=== PATIENT | female | born 1965 | race Caucasian/White ===

== ENCOUNTER 2017-05-22 17:44 | Emergency (ER) | payer OTHER ==
--- NOTE | 2017-05-22 17:49 | UC ---
Respiratory Complaint HPI - HPI Summary HPI Summary: 53 YEAR OLD FEMALE PRESENTS WITH COMPLAINS OF COUGH. - History of Current Complaint Stated Complaint: URI Time Seen by Provider: 05/22/17 17:48 Hx Obtained From: Patient Hx Last Menstrual Period: 7 weeks ago Severity Initially: Moderate Severity Currently: Moderate Pain Scale Used: 0-10 Numeric - 5 - Allergies/Home Medications Allergies/Adverse Reactions: Allergies Allergy/AdvReac Type Severity Reaction Status Date / Time Cephalosporins Allergy Severe Anaphylatic Verified 03/05/16 20:45 Shock Penicillins Allergy Severe Anaphylatic Verified 03/05/16 20:45 Shock Latex Allergy Intermediate Rash Verified 03/05/16 20:45 glue on EKG pads Allergy Severe SEVERE Uncoded 03/05/16 20:45 RASH, BREAKS SKIN DOWN PMH/Surg Hx/FS Hx/Imm Hx - Surgical History Surgical History: Yes Surgery Procedure, Year, and Place: 1995 [place] [facility] [place] [facility] [place] SURGERY TO REPAIR LEFT GROIN NERVE DAMAGE. 1999 LOWER BACK LAMINECTOMY WITH INTRATHECAL PUMP INSERTION AND [place]OVAL 3 [place]TH[place] LATER[place] [facility] [place] ABDOMINAL INCISIONAL HERNIA REPAIR, [place]. 2003 RIGHT BREAST L[place] [facility] [place] BILATERAL [place]GS VEIN SURGERY, [place]. [place] [facility] [place] - Family History Known Family History: Positive: Hypertension - Social History Alcohol Use: Rare Alcohol Amount: 3x/month Substance Use Type: None, Prescribed Smoking Status (MU): Former Smoker Type: Cigarettes Amount Used/How Often: 1 PPD Length of Time of Smoking/Using Tobacco: quit 10 years ago Have You Smoked in the Last Year: No When Did the Patient Quit Smoking/Using Tobacco: 1999 Household Exposure Type: Cigarettes Review of Systems Constitutional: Negative Skin: Negative Eyes: Negative ENT: Negative Respiratory: Cough Cardiovascular: Negative Gastrointestinal: Negative Genitourinary: Negative Motor: Negative Neurovascular: Negative Musculoskeletal: Negative Neurological: Negative Psychological: Negative All Other Systems Reviewed And Are Negative: Yes Physical Exam Triage Information Reviewed: Yes Appearance: Well-Appearing Eye Exam: Normal ENT Exam: Normal Dental Exam: Normal Neck exam: Normal Neck: Positive: 1 Respiratory: Positive: Wheezing Cardiovascular Exam: Normal Abdominal Exam: Normal Musculoskeletal Exam: Normal Neurological Exam: Normal Psychological Exam: Normal Skin Exam: Normal Respiratory Course/Dx - Differential Dx/Diagnosis Provider Diagnoses: COUGH Discharge - Discharge Plan Condition: Stable Disposition: HOME Referrals: Marysol Vuong MD [Primary Care Provider] -
[2017-05-22 17:58] VITALS: BP 121/76
== END 2017-05-22 18:00 | disposition home or self-care (01) ==
LOC: UCEAST 17:44
DX: R05 Cough (principal); Z88.0 Allergy status to penicillin; Z87.891 Personal history of nicotine dependence
CPT/HCPCS: 99212; G0463

== ENCOUNTER 2017-12-11 17:47 | Emergency (ER) | payer OTHER ==
[2017-12-11] MEDS ORDERED: NS 0.9% 1000 ML* 1,000 ML IV ONE ×2 (18:20→19:29)
[2017-12-11] MEDS ORDERED: Acetaminophen TAB* 325 MG PO ONE (18:41)
[2017-12-11] MEDS ORDERED: Albuterol/Ipratropium NEB.SOL* Albuterol 2.5 MG/Ipratropium 0.5 MG 3 ML INH ONE (18:46)
[2017-12-11] MEDS ORDERED: cefTRIAXone(*) 1 GM in NS 0.9% 50 ML* 50 ML IVPB ONE (18:49)
[2017-12-11] MEDS ORDERED: methylPREDNISolone SOD 40 MG* 1 ML VIAL IV ONE (18:50)
[2017-12-11] MEDS ORDERED: Levofloxacin TAB* 500 MG PO ONE (18:52)
--- NOTE | 2017-12-11 18:59 | UC ---
HPI Febrile Illness - HPI Summary HPI Summary: Patient is a 52-year-old female with history of asthma presenting to the with chief complaint of shortness of breath, fever as high as 103.5, cough, bilateral rib pain, worse with cough 3 days. Endorses sick contacts. Did not receive a flu vaccination this ear. She has been taking ibuprofen and Tylenol without relief. Endorses diffuse body aches. Cough is without production. Endorses sweats and chills. Denies any abdominal pain. Denies any urinary symptoms or back pain. Endorses sick contacts, but is unsure with the individuals had at the time. Denies any pinpoint tenderness worse with inspiration. Symptoms are aggravated with nothing and alleviated with nothing. She denies any nausea, vomiting, diarrhea, constipation. She endorses a decrease in by mouth intake. Denies smoking, calf pain, long trips, however patient has a family history of blood clots and she is tested positive in the past for d-dimer, however CT scans were negative for a PE. - History of Current Complaint Chief Complaint: UCRespiratory Time Seen by Provider: 12/11/17 18:10 Hx Obtained From: Patient Hx Last Menstrual Period: 11/12/17 Onset/Duration: Started Days Ago Timing: Constant Temperature: 102.3 F Initial Severity: Moderate Current Severity: Moderate Pain Intensity: 6 Pain Scale Used: 0-10 Numeric Aggravating Factors: Nothing Alleviating Factors: Nothing Associated Signs and Symptoms: Negative - Risk Factors Pseudomonas Risk Factors: Chronic Lung Disease Serious Bacterial Infection Risk Factors: Negative - Allergy/Home Medications Allergies/Adverse Reactions: Allergies Allergy/AdvReac Type Severity Reaction Status Date / Time Cephalosporins Allergy Severe Anaphylatic Verified 12/11/17 19:38 Shock Penicillins Allergy Severe Anaphylatic Verified 12/11/17 19:38 Shock latex Allergy Intermediate Rash Verified 12/11/17 19:38 glue on EKG pads Allergy Severe SEVERE Uncoded 12/11/17 18:05 RASH, BREAKS SKIN DOWN PMH/Surg Hx/FS Hx/Imm Hx Previously Healthy: Yes - Surgical History Surgical History: Yes Surgery Procedure, Year, and Place: 1995 SURGERY FOR PLACENTA ABRUPTIO, [facility] [place]. 1997 RIGHT FALLOPIAN TUBE AND OVARY REMOVED, [facility] [place]. 1998 SURGERY TO REPAIR LEFT GROIN NERVE DAMAGE. 1999 LOWER BACK LAMINECTOMY WITH INTRATHECAL PUMP INSERTION AND REMOVAL 3 MONTHS LATER, [facility] [place]. 1999'S ABDOMINAL INCISIONAL HERNIA REPAIR, [place]. 2004 RIGHT BREAST LUMPECTOMY BENIGN, [facility] [place] 06/29/2015 BILATERAL LEGS VEIN SURGERY, [place]. BLADDER SURGERY, [facility] [place]. Right foot surgery - Family History Known Family History: Positive: Hypertension - Social History Occupation: Employed Full-time Lives: With Family Alcohol Use: Rare Alcohol Amount: 3x/month Substance Use Type: None Smoking Status (MU): Former Smoker Type: Cigarettes Amount Used/How Often: 1 PPD Length of Time of Smoking/Using Tobacco: quit 10 years ago Have You Smoked in the Last Year: No When Did the Patient Quit Smoking/Using Tobacco: 1999 Household Exposure Type: Cigarettes - Immunization History Hx Tetanus, Diphtheria Vaccination: No Vaccination Up to Date: No Review of Systems Constitutional: Fever, Chills, Fatigue Skin: Negative Eyes: Negative ENT: Sore Throat Respiratory: Shortness Of Breath, Cough Cardiovascular: Chest Pain - With cough Gastrointestinal: Negative Genitourinary: Negative Motor: Negative Musculoskeletal: Negative Neurological: Negative Psychological: Negative Is Patient Immunocompromised?: No All Other Systems Reviewed And Are Negative: Yes Physical Exam Triage Information Reviewed: Yes Appearance: Ill-Appearing Vital Signs: Initial Vital Signs Temp 99.9 F 12/11/17 17:56 Pulse 112 12/11/17 17:56 Resp 18 12/11/17 17:56 BP 110/62 12/11/17 17:56 Pulse Ox 100 12/11/17 17:56 Vital Signs Reviewed: Yes Eye Exam: Normal ENT: Positive: Pharynx normal, Uvula midline. Negative: Pharyngeal erythema, Nasal congestion, Nasal drainage, TM bulging, TM dull, TM red, Tonsillar swelling, Tonsillar exudate, Sinus tenderness Neck exam: Normal Neck: Positive: Supple, Nontender, No Lymphadenopathy Respiratory: Positive: Respiratory distress - mild, Rhonchi Cardiovascular Exam: Normal Cardiovascular: Positive: RRR Musculoskeletal Exam: Normal Musculoskeletal: Positive: Strength Intact Neurological Exam: Normal Psychological: Positive: Normal Response To Family Skin Exam: Normal Course/Dx - Course Course Of Treatment: During the course of treatment, the patient is evaluated for febrile illness. She appears to be in a mild acute respiratory distress and she is tachycardia at 112 on arrival. Temperature is 102.3. Respirations 18, blood pressure remained stable. Flu and strep negative. Chest x-ray obtained which shows no acute findings. 2 L fluids given, 500 mg by mouth Levaquin given due to cephalosporin allergy, Tylenol 650 mg by mouth, breathing treatment DUO-NEB and Solu-Medrol 80 mg IV for shortness of breath due to her asthma. Patient is feeling improved, but remains at 100.3 temp on recheck. I discussed with the patient strict return precautions and she understands these. She will return to the ED for any worsening symptoms. Tylenol and ibuprofen intermittently for fevers. She is given Zofran for some mild nausea which she developed here in the UC and resolved with medication. I discussed with the patient that I am not finding a source of her infection, but likely a bronchitis. Will cover with Levaquin and give albuterol and prednisone for shortness of breath. I have also discussed with patient sending her to the ED as I am unable to provide blood work. I have agreed at this time she is safe to be discharged home, and she understands for worsening symptoms she will go to the ED and understands that we are unable to provide blood work at this time. - Febrile Illness Differential Diagnoses: Other: - Bronchitis, fever of unknown origin, bacteremia - Diagnoses Clinic Provider Diagnoses: Fever of unknown origin; shortness of breath Discharge - Sign-Out/Discharge Documenting (check all that apply): Discharge/Admit/Transfer - Discharge Plan Condition: Stable Disposition: HOME Prescriptions: Albuterol HFA INHALER* [Ventolin HFA Inhaler*] 1 puff INH Q4H PRN #1 mdi PRN Reason: Shortness Of Breath Levofloxacin TAB* [Levaquin TAB*] 500 mg PO DAILY #4 tab Ondansetron ODT TAB* [Zofran 4 MG Odt TAB*] 4 mg PO Q6H PRN #12 tab.odt MDD 4 PRN Reason: Nausea predniSONE TAB* [Deltasone TAB*] 50 mg PO DAILY #5 tab MDD 1 Patient Education Materials: Fever in Adults (ED), Acute Bronchitis (ED) Referrals: Marysol Vuong MD [Primary Care Provider] - Additional Instructions: Tylenol and ibuprofen, use intermittently every 3 hours for fever Prednisone 50 mg tabs, take once daily in the morning Levaquin 500 mg tabs once daily 4 days I have also given you Zofran for any nausea associated with the antibiotic Drink plenty of fluids, including Gatorade Chicken noodle soup, crackers, rice Albuterol inhaler, 1-2 puffs every 4 hours as needed for shortness of breath If he develop any worsening or changing symptoms, return to the ED immediately If he develop worsening fevers, abdominal pain or chest pain, go to the ED - Billing Disposition and Condition Condition: STABLE Disposition: HOME
--- NOTE | 2017-12-11 19:07 | RAD ---
Indication: Cough with fever. 2 views of the chest including dual energy PA views demonstrate no mediastinal shift. Heart is of normal size and configuration. Lung vasquez appear clear. Comparison is made with previous exam dated December 10, 2013. IMPRESSION: No active cardiopulmonary disease is noted.
[2017-12-11 20:11] VITALS: BP 127/74
[2017-12-11] MEDS ORDERED: Ondansetron ODT TAB* 4 MG SL ONE (20:12)
== END 2017-12-11 21:00 | disposition home or self-care (01) ==
LOC: UCEAST 17:47
DX: R50.9 Fever, unspecified (principal); R06.02 Shortness of breath; R07.81 Pleurodynia; R05 Cough; M79.1 Myalgia; Z88.1 Allergy status to other antibiotic agents; Z91.040 Latex allergy status; Z88.0 Allergy status to penicillin; Z91.048 Other nonmedicinal substance allergy status; Z87.891 Personal history of nicotine dependence
CPT/HCPCS: 71046; 87502; 87651; 96360; 96361; 96374; 96375; 99213; A9270-GY; G0463; J0696; J2920

== ENCOUNTER 2017-12-13 20:00 | Emergency (ER) | payer OTHER ==
[2017-12-13 21:10] LABS: ABS Basophils 0 10^3/ul (0-0.2); ABS Eosinophils 0 10^3/ul (0-0.6); ABS Lymphocytes 1.2 10^3/ul (1.0-4.8); ABS Monocytes 0.5 10^3/ul (0-0.8); ABS Neutrophils 3.8 10^3/ul (1.5-7.7); ABS Nucleated RBC 0 10^3/ul; Eosinophil % 0.4 % (0-6); Hematocrit 40 % (35-47); Hemoglobin 14.1 g/dl (12.0-16.0); Lymphocyte % 21.1 % (25-47); Mean Corpuscular HGB Conc 35 g/dl (31-36); Mean Corpuscular Hemoglobin 30 pg (27-31); Mean Corpuscular Volume 85 fL (80-97); Mean Platelet Volume 7.9 um3 (7.4-10.4); Nucleated Red Blood Cells % 0; Platelet Count 175 10^3/ul (150-450); Red Blood Count 4.73 10^6/ul (4.0-5.4); Red Cell Distribution Width 13 % (10.5-15); White Blood Count 5.5 10^3/ul (3.5-10.8)
[2017-12-13 21:20] LABS: EGFR Non-African American 78.7 (>60)
[2017-12-13] MEDS ORDERED: Ipratropium 0.5MG/2.5ML NEB* 0.5 MG/2.5 ML NEB.SOLN INH ONE (22:21)
[2017-12-13] MEDS ORDERED: Levalbuterol 0.63MG/3ML NEB* UNIT OF USE INH ONE ×2 (22:21→22:35)
[2017-12-13] MEDS ORDERED: predniSONE TAB* 20 MG PO ONE (22:21)
[2017-12-13] MEDS ORDERED: Azithromycin TAB* 250 MG PO ONE (22:29)
[2017-12-13 23:09] VITALS: BP 115/71
--- NOTE | 2017-12-14 04:20 | ED ---
Kerrie Garza Emily, scribed for Wyatt Turk MD on 12/13/17 at 2220 . Respiratory - HPI Summary HPI Summary: This patient is a 52 year old F presenting to [facility] with a chief complaint of "feeling off" from medication that began 2 days ago. Pt was seen 2 days ago and reports being treated with a breathing treatment, a steroid, and Levaquin. Pt reports her current medication causing her to see things. The patient rates the pain 0/10 in severity. Symptoms aggravated by nothing. Symptoms alleviated by prescribed medication. Patient reports fever of 103, cough (green sputum) and SOB. Pt reports not taking her prescription for prednisone, but taking the levaquin and experiencing these symptoms. - History of Current Complaint Chief Complaint: EDGeneral Stated Complaint: GENERAL Time Seen by Provider: 12/13/17 21:46 Hx Obtained From: Patient Onset/Duration: Sudden Onset, Lasting Days, Still Present Initial Severity: Mild Current Severity: Mild Pain Intensity: 0 Character: Cough (Productive) Sputum Color: Green Aggravating Factor(s): Nothing Alleviating Factor(s): Dose Of Medications Associated Signs and Symptoms: SOB - Allergy/Home Medications Allergies/Adverse Reactions: Allergies Allergy/AdvReac Type Severity Reaction Status Date / Time Cephalosporins Allergy Severe Anaphylatic Verified 12/13/17 20:13 Shock Penicillins Allergy Severe Anaphylatic Verified 12/13/17 20:13 Shock latex Allergy Intermediate Rash Verified 12/13/17 20:13 glue on EKG pads Allergy Severe SEVERE Uncoded 12/13/17 20:13 RASH, BREAKS SKIN DOWN PMH/Surg Hx/FS Hx/Imm Hx Previously Healthy: No Endocrine/Hematology History: Denies: Hx Diabetes Cardiovascular History: Reports: Hx Angina, Other Cardiovascular Problems/ Disorders - SVT'S Denies: Hx Congestive Heart Failure Comment Only: Hx Peripheral Vascular Disease - BILATERAL LEGS VEIN SURGERY Respiratory History: Reports: Hx Asthma - USE INHALERS, Hx Chronic Obstructive Pulmonary Disease (COPD) - bronchitis GI History: Reports: Hx Gastroesophageal Reflux Disease - CONTROL WITH MED History: Reports: Hx Kidney Stones - MOST RECENT 2013 - PASSED (LEFT SIDE) Denies: Hx Renal Disease Sensory History: Denies: Hx Contacts or Glasses, Hx Hearing Aid Opthamlomology History: Denies: Hx Contacts or Glasses Neurological History: Reports: Hx Headaches - 4 X A WEEK - Surgical History Surgery Procedure, Year, and Place: 1995 SURGERY FOR PLACENTA ABRUPTIO, [facility] [place]. 1997 RIGHT FALLOPIAN TUBE AND OVARY REMOVED, [facility] [place]. 1998 SURGERY TO REPAIR LEFT GROIN NERVE DAMAGE. 1999 LOWER BACK LAMINECTOMY WITH INTRATHECAL PUMP INSERTION AND REMOVAL 3 MONTHS LATER, [facility] [place]. 1999'S ABDOMINAL INCISIONAL HERNIA REPAIR, [place]. 2003 RIGHT BREAST LUMPECTOMY BENIGN, [facility] [place]. 06/29/2015 BILATERAL LEGS VEIN SURGERY, [place]. BLADDER SURGERY, [facility] [place]. Right foot surgery Hx Anesthesia Reactions: Yes - BRONCHIAL SPASM/INTUBATIONS, HARD TO WAKE UP SOMETIMES Infectious Disease History: No Infectious Disease History: Denies: Hx Clostridium Difficile, Hx Hepatitis, Hx Human Immunodeficiency Virus (HIV), Hx of Known/Suspected MRSA, Hx Shingles, Hx Tuberculosis, Hx Known/ Suspected VRE, Hx Known/Suspected VRSA, History Other Infectious Disease, Traveled Outside the in Last 30 Days - Family History Known Family History: Positive: Hypertension - Social History Occupation: Disabled Lives: With Family Alcohol Use: Rare Alcohol Amount: 3x/month Substance Use Type: Reports: None Smoking Status (MU): Former Smoker Type: Cigarettes Amount Used/How Often: 1 PPD Length of Time of Smoking/Using Tobacco: quit 10 years ago Have You Smoked in the Last Year: No Review of Systems Positive: Fever Positive: Shortness Of Breath, Cough Neurological: Other - Positive "seeing things" and "feeling off" from medication All Other Systems Reviewed And Are Negative: Yes Physical Exam - Summary Physical Exam Summary: Appearance: Well appearing, no pain distress Skin: warm, dry, reflects adequate perfusion Head/face: normal Eyes: EOMI, NEREYDA ENT: normal Neck: supple, non-tender Respiratory: breath sounds present, A lot of wheezes on left side. Cardiovascular: RRR, pulses symmetrical Abdomen: non-tender, soft Bowel Sounds: present Musculoskeletal: normal, strength/ROM intact Neuro: normal, sensory motor intact, A&Ox3 Triage Information Reviewed: Yes Vital Signs On Initial Exam: Initial Vitals Temp Pulse Resp BP Pulse Ox 98.0 F 113 18 141/72 97 12/13/17 20:05 12/13/17 20:05 12/13/17 20:05 12/13/17 20:05 12/13/17 20:05 Vital Signs Reviewed: Yes Diagnostics - Vital Signs Vital Signs Temp Pulse Resp BP Pulse Ox 12/13/17 20:05 98.0 F 113 18 141/72 97 - Laboratory Lab Results: Lab Results 12/13/17 12/13/17 Range/Units 20:45 20:45 WBC 5.5 (3.5-10.8) 10^3/ul RBC 4.73 (4.0-5.4) 10^6/ul Hgb 14.1 (12.0-16.0) g/dl Hct 40 (35-47) % MCV 85 (80-97) fL MCH 30 (27-31) pg MCHC 35 (31-36) g/dl RDW 13 (10.5-15) % Plt Count 175 (150-450) 10^3/ul MPV 7.9 (7.4-10.4) um3 Neut % (Auto) 68.8 (38-83) % Lymph % (Auto) 21.1 L (25-47) % [place] % (Auto) 9.4 H (0-7) % Eos % (Auto) 0.4 (0-6) % Baso % (Auto) 0.3 (0-2) % Absolute Neuts (auto) 3.8 (1.5-7.7) 10^3/ul Absolute Lymphs (auto) 1.2 (1.0-4.8) 10^3/ul Absolute Monos (auto) 0.5 (0-0.8) 10^3/ul Absolute Eos (auto) 0 (0-0.6) 10^3/ul Absolute Basos (auto) 0 (0-0.2) 10^3/ul Absolute Nucleated RBC 0 10^3/ul Nucleated RBC % 0 Sodium 136 L (139-145) mmol/L Potassium 3.6 (3.5-5.0) mmol/L Chloride 100 L (101-111) mmol/L Carbon Dioxide 29 (22-32) mmol/L Anion Gap 7 (2-11) mmol/L BUN 7 (6-24) mg/dL Creatinine 0.77 (0.51-0.95) mg/dL Est GFR ( Amer) 101.2 (>60) Est GFR (Non-Af Amer) 78.7 (>60) BUN/Creatinine Ratio 9.1 (8-20) Glucose 117 H (70-100) mg/dL Calcium 9.9 (8.6-10.3) mg/dL Total Bilirubin 0.50 (0.2-1.0) mg/dL AST 21 (13-39) U/L ALT 13 (7-52) U/L Alkaline Phosphatase 70 (34-104) U/L C-Reactive Protein 30.39 H (< 5.00) mg/L Total Protein 8.1 (6.4-8.9) g/dL Albumin 4.6 (3.2-5.2) g/dL Globulin 3.5 (2-4) g/dL Albumin/Globulin Ratio 1.3 (1-3) Result Diagrams: 12/13/17 20:45 12/13/17 20:45 Lab Statement: Any lab studies that have been ordered have been reviewed, and results considered in the medical decision making process. Disposition - Course Course Of Treatment: Patient with anxious feeling after taking Levaquin. She will had stopped taking the prednisone in order to do this. She was restarted on that here, given breathing treatments and was feeling much better. Likely viral exacerbation. Known asthma. Follow closely primary care physician. Converted to oral Zithromax at her request. - Diagnoses Provider Diagnoses: Medication side effect, Asthma exacerbation, Cough Discharge - Sign-Out/Discharge Documenting (check all that apply): Discharge/Admit/Transfer - Discharge Plan Condition: Improved Disposition: HOME Prescriptions: Azithromycin TAB* [Zithromax TAB (Z-SHANNAN) 250 mg #6 tabs] 250 mg PO DAILY #4 tab Levalbuterol 1.25MG/0.5ML NEB* [Xopenex 1.25 MG/0.5 ML NEB.SANDRA*] 1.25 mg INH Q4H PRN #1 box PRN Reason: Shortness Of Breath Patient Education Materials: Asthma (ED) Referrals: Marysol Vuong MD [Primary Care Provider] - Additional Instructions: Use breathing treatments every 4 hours until well. Tylenol, ibuprofen as needed for fever. Stay well-hydrated. Humidifier while sleeping. Finish course of steroid. Call your doctor first thing Friday morning to schedule follow-up. Avoid smokers. Return if worse, shortness of breath, new symptoms or other concerns. - Billing Disposition and Condition Condition: IMPROVED Disposition: HOME The documentation as recorded by the Kerrie wilhelm Emily accurately reflects the service I personally performed and the decisions made by me, Wyatt Turk MD.
== END 2017-12-13 23:09 | disposition home or self-care (01) ==
LOC: ED 20:00
DX: J45.901 Unspecified asthma with (acute) exacerbation (principal); T50.905A Adverse effect of unspecified drugs, medicaments and biological substances, initial encounter; I47.1 Supraventricular tachycardia; K21.9 Gastro-esophageal reflux disease without esophagitis; Z87.442 Personal history of urinary calculi; Z87.891 Personal history of nicotine dependence; Z88.0 Allergy status to penicillin; R05 Cough
CPT/HCPCS: 36415; 80053; 85025; 86140; 94640; 99283; A9270-GY; J7512

== ENCOUNTER 2018-09-05 12:31 | Emergency (ER) | payer OTHER ==
[2018-09-05 12:37] VITALS: BP 129/82
--- NOTE | 2018-09-05 13:12 | ED ---
Lower Extremity - HPI Summary HPI Summary: Pt presents with new onset left lower extremity pain over the past 2 weeks. Pain is sharp and shoots up along medial calf past knee into groin - superficial veins are TTP. She reports she has chronic pain in both of her lower extremities due to back pain and follows with Dr. Dillon. Upon seeing him recently, he advised she follow-up with her PCP to investigate the left lower extremity pain as she has a history of vascular surgery in this leg for valve issues in her veins (stripping?) - this surgery was performed 3 yrs ago in [place] - does not recall name of provider but states she tried to call her and she's not longer in the area. Pt's mom has a history of clots. This patient was referred to hematology/oncology in the past for issues of pancytopenia but never followed up. She admits she took a trip to [place] in June but otherwise denies smoking, dehydration, fever, chills, chest pain, shortness of breath, hemoptysis, increased heart rate. She personally does not have a history of clots but does take a 81 mg aspirin daily. - History of Current Complaint Chief Complaint: EDExtremityLower Stated Complaint: PAIN IN LEFT LEG Time Seen by Provider: 09/05/18 12:55 Hx Obtained From: Patient Hx Last Menstrual Period: 11/12/17 Pain Intensity: 5 - Allergies/Home Medications Allergies/Adverse Reactions: Allergies Allergy/AdvReac Type Severity Reaction Status Date / Time Cephalosporins Allergy Severe Anaphylatic Verified 09/05/18 12:37 Shock Penicillins Allergy Severe Anaphylatic Verified 09/05/18 12:37 Shock latex Allergy Intermediate Rash Verified 09/05/18 12:37 glue on EKG pads Allergy Severe SEVERE Uncoded 12/13/17 20:13 RASH, BREAKS SKIN DOWN PMH/Surg Hx/FS Hx/Imm Hx Previously Healthy: Yes Endocrine/Hematology History: Reports: Hx Blood Disorders - h/o pancytopenia- no f/u but recommended hem/onc Denies: Hx Anticoagulant Therapy - takes ASA 81mg daily, Hx Diabetes Cardiovascular History: Reports: Hx Angina, Other Cardiovascular Problems/ Disorders - SVT'S Denies: Hx Congestive Heart Failure Comment Only: Hx Peripheral Vascular Disease - BILATERAL LEGS VEIN SURGERY Respiratory History: Reports: Hx Asthma - USE INHALERS, Hx Chronic Obstructive Pulmonary Disease (COPD) - bronchitis GI History: Reports: Hx Gastroesophageal Reflux Disease - CONTROL WITH MED History: Reports: Hx Kidney Stones - MOST RECENT 2014 - PASSED (LEFT SIDE) Denies: Hx Renal Disease Sensory History: Denies: Hx Contacts or Glasses, Hx Hearing Aid Opthamlomology History: Denies: Hx Contacts or Glasses Neurological History: Reports: Hx Headaches - 4 X A WEEK - Surgical History Surgery Procedure, Year, and Place: 1995 [place] [facility] [place] [facility] [place] SURGERY TO REPAIR LEFT GROIN NERVE DAMAGE. 1999 LOWER BACK LAMINECTOMY WITH INTRATHECAL PUMP INSERTION AND [place]OVAL 3 MONTHS LATER[place] [facility] [place]'S ABDOMINAL INCISIONAL HERNIA REPAIR, [facility] 2003 [place] [facility] [place] BILATERAL LEGS VEIN [place]GERY[place] [facility] [place] surgery Hx Anesthesia Reactions: Yes - BRONCHIAL SPASM/INTUBATIONS, HARD TO WAKE UP SOMETIMES Infectious Disease History: No Infectious Disease History: Denies: Hx Clostridium Difficile, Hx Hepatitis, Hx Human Immunodeficiency Virus (HIV), Hx of Known/Suspected MRSA, Hx Shingles, Hx Tuberculosis, Hx Known/ Suspected VRE, Hx Known/Suspected VRSA, History Other Infectious Disease, Traveled Outside the [place] in Last 30 Days - Family History Known Family History: Positive: Hypertension - Social History Alcohol Use: Rare Alcohol Amount: 3x/month Substance Use Type: Reports: None Hx Tobacco Use: Yes - not currently Smoking Status (MU): Former Smoker Type: Cigarettes Amount Used/How Often: 1 PPD Length of Time of Smoking/Using Tobacco: quit 10 years ago Have You Smoked in the Last Year: No Review of Systems Constitutional: Negative Negative: Fever, Chills, Fatigue Cardiovascular: Negative Respiratory: Negative Gastrointestinal: Other - recent onset stomach discomfort past 2 days Negative: Vomiting, Diarrhea, Nausea Positive: no symptoms reported Positive: Myalgia Skin: Negative Neurological: Negative Psychological: Normal All Other Systems Reviewed And Are Negative: Yes Physical Exam Triage Information Reviewed: Yes Vital Signs On Initial Exam: Initial Vitals Temp Pulse Resp BP Pulse Ox 98.8 F 91 16 129/82 100 09/05/18 12:33 09/05/18 12:33 09/05/18 12:33 09/05/18 12:33 09/05/18 12:33 Vital Signs Reviewed: Yes Appearance: Positive: Well-Appearing, Well-Nourished, Pain Distress - mild - appears comfortable at rest - TTP over LLE Skin: Positive: Warm, Skin Color Reflects Adequate Perfusion, Dry - superficial veins observed on LLE along medial path of calf and thigh - TTP - no erythema, no edema Head/Face: Positive: Normal Head/Face Inspection ENT: Positive: Hearing grossly normal Respiratory/Lung Sounds: Positive: Breath Sounds Present Cardiovascular: Positive: Pulses are Symmetrical in both Upper and Lower Extremities. Negative: Leg Edema Left, Leg Edema Right Musculoskeletal: Positive: Normal, Strength/ROM Intact Neurological: Positive: Normal, Sensory/Motor Intact, Alert, Oriented to Person Place, Time, CN Intact II-III Psychiatric: Positive: Normal Diagnostics - Vital Signs Vital Signs Temp Pulse Resp BP Pulse Ox 09/05/18 12:33 98.8 F 91 16 129/82 100 - Laboratory Lab Statement: Any lab studies that have been ordered have been reviewed, and results considered in the medical decision making process. Lower Extremity Course/Dx - Course Course Of Treatment: U/S: no clot(s). May have phlebitis/vasculitis d/t h/o varicose but no edwin findings on U/S - recommend anti-inflammatory with PPI alternating with acetaminophen along with heat for pain until she can be seen by vascular - advised to call this week. If worse, may benefit from repeat U/ S. Discussed starting an antibiotic however she will refrain at this time. Also provided contact information for hem/onc as she was told to consult in the past and never did. Pt aware of danger s/sx and will f/u as needed - Diagnoses Provider Diagnoses: Left leg pain Discharge - Sign-Out/Discharge Documenting (check all that apply): Patient Departure - Discharge Plan Condition: Stable Disposition: HOME Patient Education Materials: Leg Pain (ED) Referrals: Kareme Vergara MD [Medical Doctor] - Agus Hood MD [Medical Doctor] - Additional Instructions: Rest with gentle range of motion to prevent swelling (ie. swimming, low resistance bicycle) Apply heat or warm bath alternating with ice - whichever feels better Alternate ibuprofen (take PPI) along with acetaminophen as needed for pain Avoid prolonged sitting/standing/walking Follow-up with vascular specialist this week - call Friday to make an appointment. *If worse in the meantime, return to ED - Billing Disposition and Condition Condition: STABLE Disposition: Home
== END 2018-09-05 14:19 | disposition home or self-care (01) ==
LOC: ED 12:31
DX: M79.605 Pain in left leg (principal); K21.9 Gastro-esophageal reflux disease without esophagitis; I73.9 Peripheral vascular disease, unspecified; J45.909 Unspecified asthma, uncomplicated; D61.818 Other pancytopenia; Z87.442 Personal history of urinary calculi; Z87.891 Personal history of nicotine dependence
CPT/HCPCS: 99282